=== PATIENT | male | born 1975 | race Caucasian/White ===

== ENCOUNTER → 2024-05-11 | Outpatient (CLI) | payer OTHER ==
--- NOTE | 2024-05-11 08:00 | MM ---
Reason for Exam: Clinical finding. Baseline mammogram. Indicated Problems: Lump or thickening of the left side for 4 Month(s). Patient History: Mother had breast cancer under age 50. Prior Study Comparison: Patient's first Mammogram. Tissue Density: The breasts are almost entirely fatty. Findings: Analyzed By CAD. No finding to correlate with palpable abnormality in the left breast. Overall Assessment: Incomplete: need additional imaging evaluation, BI-RAD 0 Management: Diagnostic Breast Ultrasound of the left breast. Results were given to the patient verbally at the time of exam. Patient should continue monthly self-breast exams. A clinical breast exam by your physician is recommended on an annual basis. This exam should not preclude additional follow-up of suspicious palpable abnormalities. Note on Kaci scores and lifetime risk: 1. A Kaci score greater than 3% is considered moderate risk. If this is the case, consider specialist referral to assess eligibility for a risk reducing agent. 2. If overall lifetime risk for the development of breast cancer is 20% or higher, the patient may qualify for future screening with alternating mammogram and breast MRI. [facility], , 05/11/2024 7:57 AM. Electronically signed and approved by: Alexi Mcguire DO
--- NOTE | 2024-05-11 08:17 | USB ---
Reason for Exam: Clinical finding. Patient History: Mother had breast cancer under age 50. Technique: Method: Targeted. Findings: The area of palpable concern of the left breast was scanned. Technique utilized:US breast limited LT Image; Ultrasound imaging of: Area of concern in the left breast at palpable abnormality. There is concern demonstrates a hypoechoic well-circumscribed lesion in the breast at 10:00 6 and recent nipple measuring 2.0 x 0.9 x 1.4 cm. No evidence for organizing fluid collection or mass. Overall Assessment: Benign, BI-RAD 2 Management: No follow up is required for this exam. A clinical breast exam by your physician is recommended on an annual basis and results should be correlated with mammographic findings. This exam should not preclude additional follow-up of suspicious palpable abnormalities. Results were given to the patient verbally at the time of exam. [facility], , 05/11/2024 8:14 AM. Electronically signed and approved by: Alexi Mcguire DO
== END | disposition home or self-care (01) ==
LOC: RADMAMWWP 07:20
PROVIDERS: ATTEND Internal Medicine
DX: R92.8 Other abnormal and inconclusive findings on diagnostic imaging of breast (principal); Z80.3 Family history of malignant neoplasm of breast
CPT/HCPCS: 77062; 77066